=== PATIENT | male | born 1960 | race Caucasian/White ===

== ENCOUNTER 2020-05-18 02:26 | Emergency (ER) | payer BC, OTHER, SELFPAY ==
[2020-05-18 02:43] VITALS: BP 160/101; PULSE 69; RESP 16; TEMP 36.5; O2SAT 96; BMI 26.6
--- NOTE | 2020-05-18 02:44 | ED.BACK ---
HPI - Back Pain/Injury General Chief Complaint: Back Pain/Injury Stated Complaint: LOWER BACK PAIN Time Seen by Provider: 05/18/20 02:44 Source: patient Mode of arrival: ambulatory Limitations: no limitations History of Present Illness MD elicited complaint: back pain Onset (ago): day(s) (yesterday) Timing: constant Severity: moderate Similar Symptoms Previously: No Quality: spasming and throbbing Location: lumbar spine Radiation: none Exacerbating factors: movement Relieving factors: none Associated symptoms: denies other symptoms Treatments prior to arrival: NSAIDS Work related injury: No Related Data Previous Rx's Medication Instructions Recorded diazepam [Valium] 5 mg PO TID PRN #10 tab 05/18/20 ibuprofen 600 mg PO Q6H PRN #30 tab 05/18/20 lidocaine 1 patch TOPICAL DAILY PRN #10 ea 05/18/20 Allergies Allergy/AdvReac Type Severity Reaction Status Date / Time No Known Allergies Allergy Unverified 04/05/20 16:01 [No Known Allergies*] Review of Systems Review of Systems: Constitutional : No Weight loss, No Fever, No Chills, ENT/Mouth : No Hearing loss, No Ear Pain, No Nasal Congestion, No Sinus Pain, No Hoarseness, No sore throat, No Rhinorrhea, No Swallowing Difficulty Cardiovascular : No Chest Pain, No SOB Respiratory : No Cough, No Dyspnea Gastrointestinal : No Nausea, No Vomiting, No Diarrhea, No abdominal Pain, No Hematochezia, No Melena Genitourinary : No Dysuria, No Urinary Frequency, No Hematuria, No Urinary Incontinence, Musculoskeletal : positive back pain Skin : No Skin Lesions, No rash Neuro : No Weakness, No Numbness, No Paresthesias, no loss of bowel or bladder incontinence, no saddle anesthesia [facility] Past Medical History Attestation statement: The following information was validated with the patient. Medical History (Updated 05/18/20 @ 03:11 by Mariluz Weinstein DO) No active medical problems Social History Social History (Updated 05/18/20 @ 03:10 by Mariluz Weinstein DO) Smoking Status: Never smoker Use of substances other than those prescribed or required for medical reasons: No Physical Exam Vital Signs: Vital Signs: Vital Signs Temp Pulse Resp BP Pulse Ox 05/18/20 02:43 97.7 F 69 16 160/101 H 96 Body Mass Index 26.6 Appearance: Alert. Oriented X3. No acute distress. Eyes: Pupils equal, round and reactive to light. ENT: Pharynx normal. Neck: Normal inspection. Neck supple. CVS: Normal heart rate and rhythm. Pulses normal. Respiratory: No respiratory distress. Breath sounds normal. Abdomen: Soft and nontender. Back: ttp bilateral lumbar paraspinals Skin: Skin warm and dry. Normal skin color. Normal skin turgor. Extremities: No lower extremity edema. No calf ttp Neuro: Oriented X 3. No motor deficit. No sensory deficit. SILT inner thigh MDM - Back Pain/Injury MDM Narrative Medical decision making narrative: 60 female with lower back pain in spasm no radicular symptoms, no b/b incontinence, no saddle anesthesia, no IVDA, no AC therapy - likely spasm at this time will need IM Toradol/lidocaine patches. Discharge Plan Discharge Clinical Impression: Strain of lumbar region Patient Disposition: Home, Self-Care Instructions: Acute Low Back Pain (ED) Additional Instructions: return to ED for any worsening symptoms or concerns Prescriptions: New lidocaine 4 % adhesive patch,medicated 1 patch topical DAILY PRN (Reason: pain) Qty: 10 RF: 0 ibuprofen 600 mg tablet 600 mg PO Q6H PRN (Reason: pain) Qty: 30 RF: 0 diazepam [Valium] 5 mg tablet 5 mg PO TID PRN (Reason: muscle spasm) Qty: 10 RF: 0 Referrals: Ijeoma Mckinley, ENTRY LEVEL RECRUITER [Primary Care Provider] - 2 days (if not better) Stand Alone Forms: Work/School Release
[2020-05-18] MEDS: Ketorolac Tromethamine 60 MG/2 ML VIAL IM (03:11)
[2020-05-18] MEDS: Lidocaine 4 % Patch ADH..PATCH 2 PATCH TRANSDERMA (03:12)
--- NOTE | 2020-05-18 03:14 | PC.NURSE ---
PT MEDICATED PER SEP. LIDOCAINE PATCHES APPLIED TO LOWER BACK. AWAITING IMPROVEMENT IN SYMPTOMS AND DC HOME.
== END 2020-05-18 04:03 | disposition home or self-care (01) ==
LOC: HO.ED 03:22
PROVIDERS: Emergency Provider Emergency Medicine; PCP Nurse Practitioner Family
DX: S39.012A Strain of muscle, fascia and tendon of lower back, initial encounter (principal); X58.XXXA Exposure to other specified factors, initial encounter; Y93.9 Activity, unspecified; Y92.9 Unspecified place or not applicable; Y99.9 Unspecified external cause status; Z79.899 Other long term (current) drug therapy
CPT/HCPCS: 96372; 99284; J1885

== ENCOUNTER 2020-05-19 12:40 | Emergency (ER) | payer BC, OTHER, SELFPAY ==
[2020-05-19 12:56] VITALS: BP 139/101; PULSE 73; RESP 16; TEMP 37.2; O2SAT 96; BMI 26.6
[2020-05-19] MEDS: Ketorolac Tromethamine 30 MG/ML VIAL IM (13:46)
--- NOTE | 2020-05-19 14:34 | ED_ITS ---
HPI - Back Pain/Injury General Chief Complaint: Back Pain/Injury Stated Complaint: BACK PAIN Time Seen by Provider: 05/19/20 13:04 History of Present Illness HPI Narrative: Patient complains of back pain for 4 days in the lower back worse with movement, no known injury no weakness no numbness no radiation of pain no changes of bowel or bladder This been going on for 4 days, the pain is moderate, previous treatments were Flexeril and a lidocaine patch which have not helped and he was seen here yesterday and given the prescriptions for the Flexeril and the lidocaine patch but pain persists and is not controlled Related Data Previous Rx's Medication Instructions Recorded diazepam [Valium] 5 mg PO TID PRN #10 tab 05/18/20 ibuprofen 600 mg PO Q6H PRN #30 tab 05/18/20 lidocaine 1 patch TOPICAL DAILY PRN #10 ea 05/18/20 oxycodone-acetaminophen [Percocet] 1 - 2 tab PO Q6H PRN #14 tab 05/19/20 Allergies Allergy/AdvReac Type Severity Reaction Status Date / Time No Known Allergies Allergy Unverified 04/05/20 16:01 [No Known Allergies*] Review of Systems Review of Systems: No fever no chills no numbness no weakness no paresthesias no radiation of pain, no dysuria, no incontinence, no change of bowel or bladder, no chest pain no abdominal pain no nausea no vomiting no leg pain no rash Yes all other systems are reviewed and are negative [facility] Past Medical History Source: nursing notes reviewed Medical History (Updated 05/19/20 @ 13:37 by ORIANA Guzman) No active medical problems Social History Social History (Updated 05/18/20 @ 03:10 by Mariluz Weinstein DO) Alcohol intake: never Smoking Status: Never smoker Advance Directives: No Advance Directives Information Provided: Yes Physical Exam Vital Signs: Vital Signs: Vital Signs Temp Pulse Resp BP Pulse Ox 05/19/20 12:56 99 F 73 16 139/101 H 96 Body Mass Index 26.6 General appearance is no acute distress, A&O x3 Neck is supple and nontender Respiratory no acute respiratory distress Abdomen is soft and nontender Back exam there is lower lumbar paraspinal tenderness, there is no vertebral point tenderness there is no CVA tenderness, pain is easily reproduced with movement, the skin of the back is normal color with no break in the skin no wound no redness no abscess no swelling Extremity exam is full range of motion x4 next the neuro exam is A&O x3, there is no impairment of motor or sensation motor is 5 5 x 4 and sensation is intact and the gait is normal and he is able to come up on toes and heels and flexed knees Course Course Course Narrative: Patient did not have sufficient pain release from medications prescribed yesterday so I added Percocet, he has taken it before and has no issue with narcotic dependence or abuse Discharge Plan Discharge Clinical Impression: Strain of lumbar region Qualifiers: Encounter type: initial encounter Qualified Code(s): S39.012A - Strain of muscle, fascia and tendon of lower back, initial encounter Patient Disposition: Home, Self-Care Additional Instructions: We added narcotic medication, use with caution as it may make you drowsy Follow with primary care doctor as needed for physical therapy or further evaluation Return any time any worse condition or any concerns Prescriptions: New oxycodone-acetaminophen [Percocet] 5-325 mg tablet 1 - 2 tab PO Q6H PRN (Reason: pain) Qty: 14 RF: 0 No Action lidocaine 4 % adhesive patch,medicated 1 patch topical DAILY PRN (Reason: pain) Qty: 10 RF: 0 ibuprofen 600 mg tablet 600 mg PO Q6H PRN (Reason: pain) Qty: 30 RF: 0 diazepam [Valium] 5 mg tablet 5 mg PO TID PRN (Reason: muscle spasm) Qty: 10 RF: 0 Stand Alone Forms: Work/School Release Interventions: ED Discharge Assessment Last Done: 05/19/20 13:48 Discharge Date/Time: 05/19/20 13:51
== END 2020-05-19 13:51 | disposition home or self-care (01) ==
PROVIDERS: Emergency Provider Emergency Medicine; PCP Nurse Practitioner Family
DX: S39.012A Strain of muscle, fascia and tendon of lower back, initial encounter (principal); M54.6 Pain in thoracic spine; X58.XXXA Exposure to other specified factors, initial encounter; Y93.89 Activity, other specified; Y92.9 Unspecified place or not applicable; Y99.9 Unspecified external cause status; Z79.899 Other long term (current) drug therapy
CPT/HCPCS: 96372; 99283; 99284; J1885

== ENCOUNTER 2020-05-21 10:18 | Emergency (ER) | payer BC, OTHER, SELFPAY ==
[2020-05-21 10:44] VITALS: BP 169/109; PULSE 70; RESP 18; TEMP 37.2; O2SAT 97; BMI 26.6
--- NOTE | 2020-05-21 10:54 | CT_ITS ---
EXAMINATION: CT ABDOMEN AND PELVIS WITHOUT CONTRAST CLINICAL INFORMATION: Low back pain. COMPARISON: None TECHNIQUE: Multidetector volumetric imaging was performed from the superior aspect of the liver through the pubic symphysis. Sagittal and coronal reformatted images were obtained on the technologist's workstation. This CT examination was performed using dose optimization techniques as appropriate, variously including the following: *Automated exposure control *Adjustment of mA and/or kV according to patient size (this includes techniques or standardized protocols for targeted exams where dose is matched to indication/reason for exam; i.e. extremities or head) *Use of iterative reconstruction technique DLP: 591 mGy-cm FINDINGS: LUNG BASES: The visualized lung bases are unremarkable. LIVER, GALLBLADDER, AND BILIARY TREE: The liver is normal in size, shape, and attenuation. No focal hepatic lesion or biliary ductal dilatation is present. The gallbladder is unremarkable with no evidence of radiopaque gallstones, gallbladder wall thickening, or obvious pericholecystic inflammatory changes. PANCREAS: Unremarkable. SPLEEN: Unremarkable. ADRENAL GLANDS: Unremarkable. KIDNEYS AND URETERS: The kidneys are normal in size, shape, and attenuation. There is a 2 mm calculi mid pole calyx left kidney without caliectasis. No additional radiopaque calculi seen. There is no hydronephrosis. BLADDER: Unremarkable. GASTROINTESTINAL TRACT: There is scattered colonic diverticula, stool and gas throughout the colon without any significant distention. Small bowel loops are normal caliber. Appendix is normal caliber. No inflammatory process in the right lower quadrant.. ABDOMINAL WALL: No significant hernia is appreciated. LYMPH NODES: Small scattered lymph nodes are seen in the pelvis benefits are significant. VASCULAR: Unremarkable. PELVIC VISCERA: No free air or free fluid seen. The prostate gland is normal size. OSSEOUS STRUCTURES: Unremarkable. CT/CT abdomen pelvis wo con IMPRESSION: New punctate 2 mm calculi pole calyx left kidney. Previously visualized left renal collecting system 1 cm calculi has resolved. There is no hydronephrosis on either side.
--- NOTE | 2020-05-21 11:20 | ED_ITS ---
HPI - Back Pain/Injury General Chief Complaint: Back Pain/Injury <ORIANA Curry Last Filed: 05/21/20 12:10> Stated Complaint: back pain <ORIANA Curry Last Filed: 05/21/20 12:10> Time Seen by Provider: 05/21/20 10:52 <ORIANA Curry Last Filed: 05/21/20 12:10> Source: patient <ORIANA Curry Last Filed: 05/21/20 12:10> Mode of arrival: ambulatory <ORIANA Curry Last Filed: 05/21/20 12:10> Limitations: no limitations <ORIANA Curry Last Filed: 05/21/20 12:10> History of Present Illness HPI Narrative: 60yoM c No Sig PMHx presenting to the ED with complaints of lower back pain Since Thursday worse today. Denies any injuries. Seen here on Thursday and Thursday given muscle relaxants, lidocaine patches, Percocet and other symptomatic treatment and patient reports no symptomatic relief. Reports the pain continues and is getting worse. Denies any other symptoms complaints or concerns. 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 <ORIANA Curry Last Filed: 05/21/20 12:10> Related Data Home Medications: Previous Rx's Medication Instructions Recorded diazepam [Valium] 5 mg PO TID PRN #10 tab 05/18/20 ibuprofen 600 mg PO Q6H PRN #30 tab 05/18/20 lidocaine 1 patch TOPICAL DAILY PRN #10 ea 05/18/20 oxycodone-acetaminophen [Percocet] 1 - 2 tab PO Q6H PRN #14 tab 05/19/20 lidocaine 1 patch TOPICAL DAILY #15 ea NS 05/21/20 naproxen 500 mg PO BID PRN #5 tab NS 05/21/20 oxycodone 5 mg PO Q8H PRN #5 tab NS 05/21/20 prednisone 40 mg PO DAILY 5 Days #10 tab 05/21/20 <ORIANA Curry Last Filed: 05/21/20 12:10> Allergies/Adverse Reactions: Allergies Allergy/AdvReac Type Severity Reaction Status Date / Time No Known Allergies Allergy Verified 05/21/20 10:49 [No Known Allergies*] <ORIANA Curry Last Filed: 05/21/20 12:10> Review of Systems Review of Systems: Constitutional : No trauma, No Weight loss, No Fever, No Chills, ENT/Mouth : No Hearing loss, No Ear Pain, No Nasal Congestion, No Sinus Pain, No Hoarseness, No sore throat, No Rhinorrhea, No Swallowing Difficulty Cardiovascular : No Chest Pain, No SOB Respiratory : No Cough, No Dyspnea Gastrointestinal : No Nausea, No Vomiting, No Diarrhea, No abdominal Pain, No Hematochezia, No Melena Genitourinary : No Dysuria, No Urinary Frequency, No Hematuria, No Urinary or Bowel Incontinence/retention Musculoskeletal : + Back pain, No neck pain, No joint stiffness, No joint swelling Skin : No Skin Lesions, No rash or signs of infection Neuro : No Weakness, No radiation, No Numbness, No Paresthesias, No headache, no loss of bowel or bladder incontinence, no saddle anesthesia Denies history of IV drug usage. <ORIANA Curry - Last Filed: 05/21/20 12:10> Yes all other systems are reviewed and are negative <ORIANA Curry - Last Filed: 05/21/20 12:10> [facility] Past Medical History Attestation statement: The following information was validated with the patient. <ORIANA Curry - Last Filed: 05/21/20 12:10> Medical History: Medical History No active medical problems <ORIANA Curry Last Filed: 05/21/20 12:10> Social History Social History: Social History Alcohol intake: never Smoking Status: Never smoker Advance Directives: No Advance Directives Information Provided: No <ORIANA Curry Last Filed: 05/21/20 12:10> Physical Exam Vital Signs: Vital Signs: Vital Signs Temp Pulse Resp BP Pulse Ox 05/21/20 10:44 99.0 F 70 18 169/109 H 97 Body Mass Index 26.6 vital signs have been reviewed as normal and appeared to be correct. Blood pressure normal. Heart rate normal. Respiration rate normal. Temperature normal. Oxygen saturation normal. <ORIANA Curry - Last Filed: 05/21/20 1 2:10> Vital Signs: Vital Signs Temp Pulse Resp BP Pulse Ox 05/21/20 10:44 99.0 F 70 18 169/109 H 97 Body Mass Index 26.6 <Kaz Valdez MD - Last Filed: 06/01/20 01:23> Appearance: Alert. Oriented X3. No acute distress. Head: Normal external exam. Normocephalic. Atraumatic. No Ramirez signs noted. No raccoon eyes noted Eyes: PERRLA. EOMI. Conjunctiva and sclera normal. Eyelids normal. ENT: EAC normal. TM's Normal. Pharynx normal. Uvula midline. Moist mucous membranes. No trismus noted. No drooling noted. No muffled voice noted. Neck: Normal inspection. Neck supple. FROM. No adenopathy. Thyroid Normal. No meningeal signs. No neck mass noted. CVS: Normal heart rate and rhythm. Heart sound normal. No murmurs noted. Pulses normal throughout. Respiratory: No respiratory distress. Painless inspiration. Breath sounds normal. No wheezes/rales/rhonchi noted. Chest nontender. No accessory muscle usage noted or decreased air movement noted. Abdomen: Soft and nontender. Bowel sounds normal in all 4 quadrants. No distention noted. No organomegaly noted. No visible injury noted. Back: No CVA tenderness. Full range of motion noted. No obvious deformities, or edema. Mild para-spinal muscular tenderness from lumbar region to coccyx. Full ROM in back and lower extremities. 5/5 strength hip extension/flexion, abduction, adduction. Mild Lumbar pain with hip flexion against resistance. Straight leg raise test negative on right; Straight leg raise test negative on left; Reflexes normal ankle and knee bilaterally; EHL motor strength normal bilaterally Skin: Skin warm and dry. Normal skin color. Normal skin turgor. No rashes/lesions/lacerations noted. Extremities: No lower extremity edema. Extremities exhibit normal range of motion. Extremities nontender. Neuro: Oriented X 3. No motor deficit. No sensory deficit. Reflexes normal. <ORIANA Curry - Last Filed: 05/21/20 12:10> Course Course Course Narrative: Pt c likely muscular pain, but could be herniated disc. Neuro exam shows no deficits. Due to patient returning for the 3rd time will obtain a UA and a CT scan of abdomen and pelvis without contrast to evaluate for any acute processes if negative will DC home with symptomatic treatment. Not c/w AAA/epidural abscess/dissection.No high risk Hx (Incont, fever, immunosupp, recent surgery/LP, coag, signif trauma, wt loss, puls mass, hx/o Ca, TB, or IVDU) to warrant MRI today. Not c/w spinal fx. Not cauda equina syndrome. Patient understands agrees the plan. <ORIANA Curry - Last Filed: 05/21/20 12:10> I have reviewed the chart <Kaz Valdez MD - Last Filed: 06/01/20 01:23> MDM - Back Pain/Injury Medical Records Attestation: I reviewed the patient's medical records. <ORIANA Curry - Last Filed: 05/21/20 12:10> Lab Data Attestation: I reviewed the patient's lab results. <ORIANA Curry - Last Filed: 05/21/20 12:10> Labs: Lab Results 05/21/20 Range/Units 11:22 Urine Color YELLOW Urine Appearance CLEAR Urine pH 6.0 (5.0-8.0) Ur Specific Spencer 1.015 (1.005-1.025) Urine Protein NEG (NEG-TRACE) MG/DL Urine Glucose (UA) NEG (NEG) MG/DL Urine Ketones NEG (NEG) MG/DL Urine Blood NEG (NEG) Urine Nitrite NEG (NEG) Ur Leukocyte Esterase NEG (NEG) <ORIANA Curry - Last Filed: 05/21/20 12:10> Lab Results 05/21/20 Range/Units 11:22 Urine Color YELLOW Urine Appearance CLEAR Urine pH 6.0 (5.0-8.0) Ur Specific Spencer 1.015 (1.005-1.025) Urine Protein NEG (NEG-TRACE) MG/DL Urine Glucose (UA) NEG (NEG) MG/DL Urine Ketones NEG (NEG) MG/DL Urine Blood NEG (NEG) Urine Nitrite NEG (NEG) Ur Leukocyte Esterase NEG (NEG) <Kaz Valdez MD - Last Filed: 06/01/20 01:23> Imaging Data CT scan - abdomen: Attestation: I personally reviewed and interpreted this imaging study as follows: <ORIANA Curry Last Filed: 05/21/20 12:10> Radiologist's impression: FINDINGS: LUNG BASES: The visualized lung bases are unremarkable. LIVER, GALLBLADDER, AND BILIARY TREE: The liver is normal in size, shape, and attenuation. No focal hepatic lesion or biliary ductal dilatation is present. The gallbladder is unremarkable with no evidence of radiopaque gallstones, gallbladder wall thickening, or obvious pericholecystic inflammatory changes. PANCREAS: Unremarkable. SPLEEN: Unremarkable. ADRENAL GLANDS: Unremarkable. KIDNEYS AND URETERS: The kidneys are normal in size, shape, and attenuation. There is a 2 mm calculi mid pole calyx left kidney without caliectasis. No additional radiopaque calculi seen. There is no hydronephrosis. BLADDER: Unremarkable. GASTROINTESTINAL TRACT: There is scattered colonic diverticula, stool and gas throughout the colon without any significant distention. Small bowel loops are normal caliber. Appendix is normal caliber. No inflammatory process in the right lower quadrant.. ABDOMINAL WALL: No significant hernia is appreciated. LYMPH NODES: Small scattered lymph nodes are seen in the pelvis benefits are significant. VASCULAR: Unremarkable. PELVIC VISCERA: No free air or free fluid seen. The prostate gland is normal size. OSSEOUS STRUCTURES: Unremarkable. CT/CT abdomen pelvis wo con IMPRESSION: New punctate 2 mm calculi pole calyx left kidney. Previously visualized left renal collecting system 1 cm calculi has resolved. There is no hydronephrosis on either side. <ORIANA Curry - Last Filed: 05/21/20 12:10> Discharge Plan Discharge Clinical Impression: Strain of lumbar paraspinal muscle <ORIANA Curry Last Filed: 05/21/20 12:10> Patient Disposition: Home, Self-Care <ORIANA Curry Last Filed: 05/21/20 12:10> Instructions: Muscle Spasm (ED), Lower Back Exercises (ED) <ORIANA Curry Last Filed: 05/21/20 12:10> Prescriptions: New oxycodone 5 mg tablet 5 mg PO Q8H PRN (Reason: pain) Qty: 5 RF: 0 naproxen 500 mg tablet 500 mg PO BID PRN (Reason: pain ) Qty: 5 RF: 0 prednisone 20 mg tablet 40 mg PO DAILY 5 Days Qty: 10 RF: 0 lidocaine 5 % adhesive patch,medicated 1 patch topical DAILY Qty: 15 RF: 0 No Action lidocaine 4 % adhesive patch,medicated 1 patch topical DAILY PRN (Reason: pain) Qty: 10 RF: 0 ibuprofen 600 mg tablet 600 mg PO Q6H PRN (Reason: pain) Qty: 30 RF: 0 diazepam [Valium] 5 mg tablet 5 mg PO TID PRN (Reason: muscle spasm) Qty: 10 RF: 0 oxycodone-acetaminophen [Percocet] 5-325 mg tablet 1 - 2 tab PO Q6H PRN (Reason: pain) Qty: 14 RF: 0 <ORIANA Curry - Last Filed: 05/21/20 12:10> Referrals: Ijeoma Mckinley, [employer]IC[employer] CH[employer] CLERKS SUPERVISOR [Primary Care Provider] - 2 days ( Please follow-up with your primary care provider regarding your lower back pain this is her 3rd visit to the emergency department we have given you multiple medications you possibly need therapy or further evaluation and treatment. Your CT scan of abdomen and pelvis was within normal limits no acute processes noted. Therefore again follow up with her primary care provider for further evaluation treatment possibly therapy.) <ORIANA Curry - Last Filed: 05/21/20 12:10> Stand Alone Forms: Work/School Release <ORIANA Curry - Last Filed: 05/21/20 12:10> Interventions: ED Discharge Assessment Last Done: 05/21/20 12:12 <ORIANA Curry - Last Filed: 05/21/20 12:10> Discharge Date/Time: 05/21/20 12:14 <ORIANA Curry - Last Filed: 05/21/20 12:10> Print Language: Pashto <ORIANA Curry - Last Filed: 05/21/20 12:10>
[2020-05-21 11:30] LABS: Glucose Urine UA NEG (NEG); Leukocyte Esterase Urine NEG (NEG); Nitrite Urine NEG (NEG); Specific Gravity - Urine 1.015 (1.005-1.025); Urine Blood NEG (NEG); Urine Ketones NEG (NEG); Urine Protein NEG (NEG-TRACE)
[2020-05-21 11:34] LABS: UACC Culture Trigger NO
[2020-05-21 11:35] LABS: Appearance Urine CLEAR; Color Urine YELLOW
== END 2020-05-21 12:14 | disposition home or self-care (01) ==
PROVIDERS: Physician Assistant Medical; Emergency Provider Emergency Medicine; PCP Nurse Practitioner Family
DX: S39.012A Strain of muscle, fascia and tendon of lower back, initial encounter (principal); R10.9 Unspecified abdominal pain; X58.XXXA Exposure to other specified factors, initial encounter; Y93.9 Activity, unspecified; Y92.9 Unspecified place or not applicable; Y99.9 Unspecified external cause status; Z79.899 Other long term (current) drug therapy
CPT/HCPCS: 74176; 81003; 99283; 99284

== ENCOUNTER 2021-04-16 16:11 | Emergency (ER) | payer BC, MEDICAID, SELFPAY ==
[2021-04-16 16:48] VITALS: BP 129/68; PULSE 82; RESP 16; TEMP 37; O2SAT 99; BMI 26.4
[2021-04-16] MEDS: Lidocaine HCl 2 % MPF 5 ML VIAL SUBCUT (17:14)
--- NOTE | 2021-04-16 17:37 | ED_ITS ---
HPI - Extremity Problem General Chief complaint: Extremity Problem Stated complaint: Toe swelling Time Seen by Provider: 04/16/21 17:02 Source: patient Mode of arrival: ambulatory Limitations: no limitations History of Present Illness HPI Narrative: 60-year-old male with a past medical history of recurrent ingrown toenails here with complaints of swelling, pain and ingrown toenail to the low left big toe.. Patient tells me that he was seeing a crane operator unfortunately his crane operator retired and he cannot find 1 that accepts his insurance. No fevers or chills Related Data Previous Rx's Medication Instructions Recorded diazepam 5 mg tablet (Valium) 5 mg PO TID PRN #10 tab 05/18/20 ibuprofen 600 mg tablet 600 mg PO Q6H PRN #30 tab 05/18/20 lidocaine 4 % topical patch 1 patch TOPICAL DAILY PRN #10 ea 05/18/20 oxycodone-acetaminophen 5 mg-325 1 - 2 tab PO Q6H PRN #14 tab 05/19/20 mg tablet (Percocet) lidocaine 5 % topical patch 1 patch TOPICAL DAILY #15 ea NS 05/21/20 naproxen 500 mg tablet 500 mg PO BID PRN #5 tab NS 05/21/20 oxycodone 5 mg tablet 5 mg PO Q8H PRN #5 tab NS 05/21/20 prednisone 20 mg tablet 40 mg PO DAILY 5 Days #10 tab 05/21/20 doxycycline monohydrate 100 mg 100 mg PO BID #20 cap 04/16/21 capsule Allergies Allergy/AdvReac Type Severity Reaction Status Date / Time No Known Allergies Allergy Verified 04/16/21 16:48 [No Known Allergies*] Review of Systems Review of Systems: Yes all other systems are reviewed and are negative Constitutional: Constitutional: Reports no additional constitutional complaints, Denies body ache(s), Denies chills, Denies fever(s), Denies headache(s) and Denies weakness Eyes: Eyes: Reports no additional eye complaints and Denies change in vision ENT: Reports system reviewed and no additional complaints, except as documented, Denies dizziness, Denies headache(s), Denies nasal congestion, Denies nasal discharge and Denies neck pain Cardiovascular: Cardiovascular: Reports no additional cardiovascular complaints, Denies chest pain, Denies leg edema and Denies dyspnea Respiratory: Respiratory: Reports no additional respiratory complaints, Denies cough and Denies dyspnea Gastrointestinal: Gastrointestinal: Reports no additional gastrointestinal complaints, Denies abdominal pain, Denies diarrhea, Denies nausea and Denies vomiting Genitourinary: Genitourinary: Denies urinary incontinence Musculoskeletal: Musculoskeletal: Reports no additional musculoskeletal complaints, Denies back pain, Denies arthralgias, Denies joint swelling, Denies neck pain, Denies numbness and Denies tingling Integumentary/Breasts: Skin/Breast: Reports system reviewed and no additional complaints, except as docu, Reports swelling, Reports erythema and Denies rash Neurologic: Reports system reviewed and no additional complaints, except as documented, Denies Abnormal speech present, Denies dizziness, Denies headache(s), Denies numbness, Denies tingling and Denies weakness PMFSH Past Medical History Attestation statement: The following information was validated with the patient. Source: old records reviewed and nursing notes reviewed Medical History No active medical problems Social History Social History Alcohol intake: never Advance Directives: No Advance Directives Information Provided: No Physical Exam Vital Signs: Vital Signs: Last Vital Signs Temp 98.6 F 04/16/21 16:48 Pulse 82 04/16/21 16:48 Resp 16 04/16/21 16:48 BP 129/68 04/16/21 16:48 Pulse Ox 99 04/16/21 16:48 Body Mass Index 26.4 Const: General: cooperative, healthy appearing, comfortable and no acute distress Orientation/consciousness: patient oriented x3 Limitations: no limitations HENMT: Head: Yes normal to inspection Ears: hearing grossly normal bilaterally General nose exam: Normal external nose present Face and sinus: Yes normal facial exam Mouth: Normal oral and palatal mucosa present Throat: Yes posterior oropharynx normal Eyes: General: appearance normal, both eyes and all related structures Pupils: Equal, round and reactive pupils present Neck: Neck: Yes normal visual inspection Chest: Chest palpation & inspection: normal inspection of the chest Resp: Effort & Inspection: normal respiratory effort Auscultation: clear to auscultation bilaterally Cardio: Rate: regular rate Rhythm: regular rhythm Peripheral pulses: Peripheral pulses 2+ throughout GI: Inspection: Yes normal to inspection Palpation (GI): Soft to palpation and nontender Auscultation: normal bowel sounds Back/Spine/Pelvis: Thoracic/Lumbar Spine: thoracic and lumbar spine normal to inspection Skin: General skin exam: no rashes or lesions noted Neuro: General: patient oriented x3, no focal motor deficits and normal sensation to monofilament Cranial nerves: Yes Equal, round and reactive pupils present Cognition (Neuro): normal cognition Speech: No Abnormal speech present Gait exam (Neuro): Normal gait present Motor exam (neuro): 5/5 motor strength present throughout Extrem: Other: The left great toe there is an ingrown toenail on the medial aspect with some swelling and redness and tenderness General: Yes normal to inspection Course Course Course Narrative: Left ingrown toenail on the great toe. See procedure note. Will start patient on antibiotics and have him follow up with outpatient crane operator. Reviewed worrisome signs and symptoms of when to return to the emergency department. Comfortable discharge home. MDM - Extremity (Nontraumatic) Medical Records Attestation: I reviewed the patient's medical records. Lab Data Attestation: I reviewed the patient's lab results. Procedures Procedure Narrative Procedure Narrative: The medial aspect of the toenail was excised. A SMALL AMOUNT OF THE LATERAL TOENAIL WAS ALSO EXCISED Nerve Block Nerve Block 1: Time out performed: No Local Anesthetic: lidocaine 2% Amount of anesthesia used (mL): 5 Side: left Nerve Blocks: digital Procedure Successful: Yes Patient Tolerated Procedure: well Complications: none Discharge Plan Discharge Clinical Impression: Ingrowing toenail of left foot Patient Disposition: Home, Self-Care Instructions: Ingrown Nail (ED) Additional Instructions: Continue soaks Start antibiotics right away Prescriptions: New doxycycline monohydrate 100 mg capsule 100 mg PO BID Qty: 20 RF: 0 No Action lidocaine 4 % adhesive patch,medicated 1 patch topical DAILY PRN (Reason: pain) Qty: 10 RF: 0 ibuprofen 600 mg tablet 600 mg PO Q6H PRN (Reason: pain) Qty: 30 RF: 0 diazepam [Valium] 5 mg tablet 5 mg PO TID PRN (Reason: muscle spasm) Qty: 10 RF: 0 oxycodone-acetaminophen [Percocet] 5-325 mg tablet 1 - 2 tab PO Q6H PRN (Reason: pain) Qty: 14 RF: 0 oxycodone 5 mg tablet 5 mg PO Q8H PRN (Reason: pain) Qty: 5 RF: 0 naproxen 500 mg tablet 500 mg PO BID PRN (Reason: pain ) Qty: 5 RF: 0 prednisone 20 mg tablet 40 mg PO DAILY 5 Days Qty: 10 RF: 0 lidocaine 5 % adhesive patch,medicated 1 patch topical DAILY Qty: 15 RF: 0 Referrals: Dirk Solano [Physician] - 2 days
== END 2021-04-16 17:45 | disposition home or self-care (01) ==
PROVIDERS: Emergency Provider Emergency Medicine; PCP Nurse Practitioner Family
DX: L60.0 Ingrowing nail (principal); M79.672 Pain in left foot; Z79.899 Other long term (current) drug therapy
CPT/HCPCS: 11765; 99283; 99284

== ENCOUNTER 2023-04-13 14:16 | Emergency (ER) | payer OTHER, SELFPAY ==
--- NOTE | ~2023-04-13 | CT_ITS ---
EXAMINATION: CT ABDOMEN AND PELVIS WITH CONTRAST CLINICAL INFORMATION: Left lower quadrant pain COMPARISON: 05/21/2020 TECHNIQUE: Multidetector volumetric images were obtained from the superior aspect of the liver through the pubic symphysis following administration 85 mL of Omnipaque 350 intravenous contrast. Sagittal and coronal reformatted images were obtained on the technologist's workstation. Oral contrast: No This CT examination was performed using dose optimization techniques as appropriate, variously including the following: *Automated exposure control *Adjustment of mA and/or kV according to patient size (this includes techniques or standardized protocols for targeted exams where dose is matched to indication/reason for exam; i.e. extremities or head) *Use of iterative reconstruction technique DLP: 712 mGy-cm FINDINGS: LUNG BASES: The visualized lung bases are unremarkable. LIVER, GALLBLADDER, AND BILIARY TREE: The liver is normal in size, shape, and attenuation. No focal hepatic lesion or biliary ductal dilatation is present. The gallbladder is unremarkable with no evidence of radiopaque gallstones, gallbladder wall thickening, or obvious pericholecystic inflammatory changes. PANCREAS: Unremarkable. SPLEEN: Unremarkable. ADRENAL GLANDS: Unremarkable. KIDNEYS AND URETERS: The kidneys are normal in size, shape, and attenuation. There is a single punctate nonobstructing left mid renal calculus (4:319). No hydronephrosis, hydroureter, or additional calculi seen. No perinephric stranding. BLADDER: Unremarkable. GASTROINTESTINAL TRACT: The small and large bowel are unremarkable aside from scattered colonic diverticula without diverticulitis. The appendix is unremarkable. ABDOMINAL WALL: There is a tiny umbilical hernia seen containing only fat. There is mild diastases of the rectus muscles. Tiny inguinal hernias are seen containing only fat. LYMPH NODES: No retroperitoneal lymphadenopathy. VASCULAR: Calcific plaque present in the distal aorta. No aneurysm. PELVIC VISCERA: Unremarkable. OSSEOUS STRUCTURES: Unremarkable. CT/CT abdomen pelvis w IV con IMPRESSION: 1. A cause for the patient's left lower quadrant pain has not been found. 2. There is a single punctate nonobstructing left renal calculus. 3. Colonic diverticulosis without diverticulitis. Fleischner guidelines were followed.
[2023-04-13 15:21] VITALS: BP 174/106; PULSE 70; RESP 14; TEMP 36.3; O2SAT 96; BMI 31.8
--- NOTE | 2023-04-13 15:21 | ED.GENADULT ---
HPI - General Adult General Chief complaint: Abdominal Pain Stated complaint: lower l side abd pain Time Seen by Provider: 04/13/23 21:11 Source: patient Mode of arrival: ambulatory Limitations: no limitations History of Present Illness HPI narrative: 62 yo male remote hx of kidney stones requiring lithotripsy in the past but no other PMH or surgeries here with c/o stabbing painful LLQ but denies other associated or GI complaints and no n/v or fevers. He states he has never had diverticulitis in the past. He denies hematuria MD complaint: LLQ pain Onset (ago): hour(s) (several ) Location: abdomen Radiation: non-radiation Severity: mild Quality: stabbing and aching Pain Consistency: intermittent Relieving factors: none Exacerbating factors: movement Associated symptoms: denies other symptoms Treatments prior to arrival: none Related Data Previous Rx's Medication Instructions Recorded diazepam 5 mg tablet (Valium) 5 mg PO TID PRN muscle spasm #10 05/18/20 tabs ibuprofen 600 mg tablet 600 mg PO Q6H PRN pain #30 tabs 05/18/20 lidocaine 4 % topical patch 1 patch topical DAILY PRN pain #10 05/18/20 ea oxycodone-acetaminophen 5 mg-325 1 - 2 tab PO Q6H PRN pain #14 tabs 20 mg tablet (Percocet) lidocaine 5 % topical patch 1 patch topical DAILY #15 ea 05/21/20 naproxen 500 mg tablet 500 mg PO BID PRN pain #5 tabs 05/21/20 oxycodone 5 mg tablet 5 mg PO Q8H PRN pain #5 tabs 05/21/20 prednisone 20 mg tablet 40 mg (2 x 20 mg) PO DAILY 05/21/20 inflammation 5 days #10 tabs doxycycline monohydrate 100 mg 100 mg PO BID #20 caps 04/16/21 capsule Allergies Allergy/AdvReac Type Severity Reaction Status Date / Time No Known Allergies Allergy Verified 04/16/21 16:48 [No Known Allergies*] Review of Systems Review of Systems: Constitutional : No Weight loss, No Fever, No Chills ENT/Mouth : No sore throat, No Rhinorrhea Eyes: No Swelling, No Redness Cardiovascular : No Chest Pain, No SOB, NoEdema Respiratory : No Cough, No Sputum, No Wheezing Gastrointestinal : no Nausea, no Vomiting, no Diarrhea, positive abdominal Pain, No Hematochezia, No Melena Genitourinary : No Dysuria, No Urinary Frequency, No Hematuria, No Urgency Musculoskeletal : No joint pain, No Myalgias, No Joint Swelling Skin : No Skin Lesions, No rash Neuro : No Weakness, No Numbness, No Dizziness, No Headache Psych : No Anxiety/Panic, No Depression Heme/Lymph: No Bruising, No Lymphadenopathy Endocrine : No Polyuria, No Polydipsia All other systems reviewed and are negative. [facility] Past Medical History Attestation statement: The following information was validated with the patient. Medical History No active medical problems Social History Social History (Updated 04/13/23 @ 21:36 by Cristal Weinstein DO) Alcohol intake: never Patient Tobacco Use Status: Tobacco use Unknown Smoked in Last 30 Days: No Use of substances other than those prescribed or required for medical reasons: No Advance Directives: No Advance Directives Information Provided: No Physical Exam ED Vital Signs: Vital Signs - 24 hr 04/13/23 15:21 04/13/23 21:45 04/13/23 23:42 Temperature 97.3 F 97.9 F 97.8 F Pulse Rate 70 79 57 Respiratory Rate 14 18 Blood Pressure 174/106 H 144/103 H 144/84 H Pulse Oximetry 96 95 98 Oxygen Delivery Method Room Air Room Air Room Air BMI result Body Mass Index 31.8 Appearance: Alert. Oriented X3. No acute distress. Eyes: Pupils equal, round and reactive to light. ENT: Pharynx normal. Neck: Normal inspection. Neck supple. CVS: Normal heart rate and rhythm. Pulses normal. Respiratory: No respiratory distress. Breath sounds normal. Abdomen: Soft and moderate ttp in LLQ no rebound Skin: Skin warm and dry. Normal skin color. Normal skin turgor. Extremities: No lower extremity edema. No calf ttp Neuro: Oriented X 3. No motor deficit. No sensory deficit. Course Course Course Narrative: RME performed by Chantal Hickey PA-C. Patient is a 62 year old assigned male at presenting to the emergency department with abdominal pain. Labs ordered. Patient placed back in the waiting room pending room availability and results. Reevaluation(s) Reevaluation #1: has normal labs and normal CT scan clinically I would have suspected diverticulitis but given lack of fevers and WBC count will start on NSAIDs and DC home. Medications Administered Discontinued Medications Generic Name Dose Route Start Last Admin Trade Name [place] PRN Reason Stop Dose Admin Sodium Chloride 1,000 mls @ 999 mls/hr 04/13/23 21:30 04/13/23 21:43 Ns IV 04/13/23 22:30 999 mls/hr .Q1H1M AUREA Administration Iohexol 85 ml 04/13/23 23:21 04/13/23 23:21 Iohexol 350 Mg/Ml 100 Ml Infus..Btl IV 04/13/23 23:22 85 ml ONCE ONE Administration Ketorolac Tromethamine 15 mg 04/13/23 21:23 04/13/23 21:52 Ketorolac Tromethamine 15 Mg/Ml Vial IVPUSH 04/13/23 21:24 15 mg ONCE ONE Administration Medical Decision Making Medical Decision Making [facility] Narrative: 62 yo male PMH of renal colic remotely here with c/o LLQ pain but no other GI or symptoms at this time will need basic labs, UA, CT scan and IVF and IV toradol. No rebound or acute abdomen. Suspect renal colic vs diverticulitis. Differential Diagnosis Differential Diagnoses: The differential diagnosis associated with the presentation includes renal colic, diverticulitis Admission/Observation Consideration of admission/observation: Escalation of care including admission/observation considered no acute findings stable for outaptient management Lab Data [facility] Lab Attestation statement: I reviewed the patient's lab results. 04/13/23 16:00 04/13/23 16:00 Labs: Lab Results 04/13/23 Range/Units 16:00 WBC 6.4 (4.8-10.8) X10*3/uL RBC 5.34 (4.60-5.80) X10*6/uL Hgb 17.4 (14.0-18.0) g/dl Hct 48.2 (42.0-52.0) % MCV 90.3 (80.0-98.0) fL MCH 32.6 (27.0-33.0) pg MCHC 36.1 H (31.0-36.0) g/dl RDW 12.5 (11.0-16.0) % Plt Count 204 (160-400) X10*3/uL MPV 9.2 L (9.4-12.4) fL Immature Gran % (Auto) 0.2 (0.0-0.4) % Neut % (Auto) 51.4 (45-73) % Lymph % (Auto) 38.4 (20-40) % Stokes % (Auto) 7.4 (2-11) % Eos % (Auto) 2.0 (0-4) % Baso % (Auto) 0.6 (0-2) % Lymph # (Auto) 2.5 (1.2-4.9) X10*3/uL Stokes # (Auto) 0.5 (0.1-1.2) X10*3/uL Eos # (Auto) 0.1 (0.0-0.4) X10*3/uL Baso # (Auto) 0.0 (0.0-0.2) X10*3/uL Abs Immat Gran (auto) 0.01 (0.00-0.03) X10*3/uL Absolute Neuts (auto) 3.3 (2.0-8.3) x10*3/uL Absolute Nucleated RBC 0.000 (0.0-0.012) X10*3/uL Nucleated RBC % (auto) 0.0 (0.0-0.2) /100WBC Sodium 136 (135-145) mmol/L Potassium 3.9 (3.3-5.1) mmol/L Chloride 108 (96-108) mmol/L Carbon Dioxide 20 L (22-29) mmol/L Anion Gap 12 (12-20) BUN 19 H (9-16) mg/dL Creatinine 0.99 (0.5-1.4) mg/dL Estim Creat Clear Calc 77.5 Estimated GFR > 60 Random Glucose 102 (60-115) mg/dL Calcium 9.8 (8.4-10.2) mg/dL Magnesium 2.0 (1.6-2.6) mg/dL Total Bilirubin 0.5 (0.0-1.0) mg/dL AST 27 (5-37) U/L ALT 34 (0-40) U/L Alkaline Phosphatase 72 (39-117) U/L Total Protein 7.1 (6.5-8.0) g/dL Albumin 4.2 (3.5-5.0) g/dL Urine Color Yellow Urine Appearance Clear Urine pH 5.5 (5.0-9.0) Ur Specific [place] 1.020 (1.005-1.025) Urine Protein Negative (Neg-Trace) mg/dL Urine Glucose (UA) Negative (Negative) mg/dL Urine Ketones Negative (Negative) mg/dL Urine Blood Negative (Negative) Urine Nitrite Negative (Negative) Ur Leukocyte Esterase Negative (Negative) Independent Interpretation I performed an independent interpretation of an: CT Scan (normal ) Radiology Impression Discussion of test interpretation with radiology: I have reviewed the radiologist's reading. External Record Review External record reviewed: Inpatient record Prescription Management I considered prescription management with: Pain Medication Discharge Plan Discharge Clinical Impression: Abdominal pain Qualifiers: Abdominal location: left lower quadrant Qualified Code(s): R10.32 - Left lower quadrant pain Patient Disposition: Home, Self-Care Instructions: Abdominal Pain (ED) Additional Instructions: labs normal, urine negative, CT scan normal no acute stone causing symptoms and no active diverticulitis. small bilateral fat containing hernias none of these are causing symptoms. at this time no findings for source of pain will start on tylenol and motrin for pain. you do have diverticulosis but no signs of infection. return for fevers, vomiting, black or bloody stools, inability to urinate or any other concerns. Prescriptions: No Action lidocaine 4 % adhesive patch,medicated 1 patch topical DAILY PRN (Reason: pain) Qty: 10 0RF Rx Instructions: may leave on for up to 12 hrs ibuprofen 600 mg tablet 600 mg PO Q6H PRN (Reason: pain) Qty: 30 0RF diazepam [Valium] 5 mg tablet 5 mg PO TID PRN (Reason: muscle spasm) Qty: 10 0RF oxycodone-acetaminophen [Percocet] 5-325 mg tablet 1 - 2 tab PO Q6H PRN (Reason: pain) Qty: 14 0RF oxycodone 5 mg tablet 5 mg PO Q8H PRN (Reason: pain) Qty: 5 0RF naproxen 500 mg tablet 500 mg PO BID PRN (Reason: pain ) Qty: 5 0RF prednisone 20 mg tablet 40 mg PO DAILY 5 Days Qty: 10 0RF lidocaine 5 % adhesive patch,medicated 1 patch topical DAILY Qty: 15 0RF Rx Instructions: leave on most painful area for up to 12 hrs doxycycline monohydrate 100 mg capsule 100 mg PO BID Qty: 20 0RF Stand Alone Forms: Work/School Release
[2023-04-13 16:05] LABS: MANUAL DIFF FLAG NO
[2023-04-13 16:07] LABS: Basophils Percent Auto 0.6 % (0-2); Eosinophils Absolute Auto 0.1 X10*3/uL (0.0-0.4); Hematocrit 48.2 % (42.0-52.0); Hemoglobin 17.4 g/dl (14.0-18.0); Imm Gran Abs Auto 0.01 X10*3/uL (0.00-0.03); Imm Gran Pct Auto 0.2 % (0.0-0.4); Lymphocytes Absolute Auto 2.5 X10*3/uL (1.2-4.9); Lymphocytes Percent Auto 38.4 % (20-40); Mean Corpuscular HGB Conc 36.1 g/dl (31.0-36.0); Mean Corpuscular Hemoglobin 32.6 pg (27.0-33.0); Mean Corpuscular Volume 90.3 fL (80.0-98.0); Mean Platelet Volume 9.2 fL (9.4-12.4); Monocytes Absolute Auto 0.5 X10*3/uL (0.1-1.2); Monocytes Percent Auto 7.4 % (2-11); Neutrophils Absolute Auto 3.3 x10*3/uL (2.0-8.3); Neutrophils Percent Auto 51.4 % (45-73); Platelet Count 204 X10*3/uL (160-400); Red Blood Count 5.34 X10*6/uL (4.60-5.80); Red Cell Distribution Width 12.5 % (11.0-16.0); White Blood Count 6.4 X10*3/uL (4.8-10.8)
[2023-04-13 16:08] LABS: Appearance Urine Clear; Color Urine Yellow; Glucose Urine UA Negative (Negative); Leukocyte Esterase Urine Negative (Negative); Nitrite Urine Negative (Negative); PH 5.5 (5.0-9.0); Urine Blood Negative (Negative); Urine Ketones Negative (Negative); Urine Protein Negative (Neg-Trace)
[2023-04-13 16:21] LABS: Alanine Aminotransferase 34 U/L (0-40); Albumin Level 4.2 g/dL (3.5-5.0); Alkaline Phosphatase 72 U/L (39-117); Anion Gap 12 (12-20); Aspartate Amino Transferase 27 U/L (5-37); Bilirubin Total 0.5 mg/dL (0.0-1.0); Blood Urea Nitrogen 19 mg/dL (9-16); Calcium 9.8 mg/dL (8.4-10.2); Carbon Dioxide 20 mmol/L (22-29); Chloride 108 mmol/L (96-108); Creatinine Clr Calc Pharmacy 77.5; Estimated Glomerular Filt Rate > 60; Glucose Random 102 mg/dL (60-115); Potassium 3.9 mmol/L (3.3-5.1); Sodium 136 mmol/L (135-145); Total Protein 7.1 g/dL (6.5-8.0)
[2023-04-13] MEDS: 0.9 % Sodium Chloride 1,000 ML 999 ML IV (21:43)
[2023-04-13 21:45] VITALS: BP 144/103; PULSE 79; RESP 18; TEMP 36.6; O2SAT 95
[2023-04-13] MEDS: Ketorolac Tromethamine 15 MG/ML VIAL IVPUSH (21:52)
[2023-04-13] MEDS: iohexoL 350 MG/ML 100 ML INFUS..BTL 85 ML IV (23:21)
[2023-04-13 23:42] VITALS: BP 144/84; PULSE 57; TEMP 36.6; O2SAT 98
== END 2023-04-14 00:38 | disposition home or self-care (01) ==
PROVIDERS: Physician Assistant Medical; Emergency Provider Emergency Medicine
DX: R10.32 Left lower quadrant pain (principal)
CPT/HCPCS: 36415; 74177; 80053; 81003; 83735; 85025; 96361; 96374; 99284; J1885; Q9967

== ENCOUNTER 2023-12-14 18:08 | Emergency (ER) | payer OTHER, SELFPAY ==
[2023-12-14 18:27] VITALS: BP 185/94; PULSE 62; RESP 20; TEMP 37; O2SAT 95; BMI 31.6
--- NOTE | 2023-12-14 18:27 | ED_ITS ---
HPI - General Adult General Chief complaint: Dental/Oral Stated complaint: jaw pain Time Seen by Provider: 12/14/23 20:55 History of Present Illness HPI narrative: The patient is a 63-year-old male who is on no medications. He denies any particular medical problems although he does not have any teeth. He says he is unable to wear dentures because he has a severe gag reflex. The patient says that early this morning at around 01:00 he noticed that he had pain on the right side of his face. He indicates his right cheek area. Pain has been persistent all day long. It is persistent and constant. He used ibuprofen. He has had no associated fever, sweats, chills. He has no associated chest pain or shortness of breath. No associated nausea or vomiting. No diaphoresis. He came to the emergency room because the pain was going on for so long for unclear reasons. He does not think that he grinds his jaw. Related Data Previous Rx's ?Medication ?Instructions ?Recorded diazepam 5 mg tablet (Valium) 5 mg PO TID PRN muscle spasm #10 05/18/20 tabs ibuprofen 600 mg tablet 600 mg PO Q6H PRN pain #30 tabs 05/18/20 lidocaine 4 % topical patch 1 patch topical DAILY PRN pain #10 05/18/20 ea oxycodone-acetaminophen 5 mg-325 1 - 2 tab PO Q6H PRN pain #14 tabs 05/19/20 mg tablet (Percocet) lidocaine 5 % topical patch 1 patch topical DAILY #15 ea 05/21/20 naproxen 500 mg tablet 500 mg PO BID PRN pain #5 tabs 05/21/20 oxycodone 5 mg tablet 5 mg PO Q8H PRN pain #5 tabs 05/21/20 prednisone 20 mg tablet 40 mg (2 x 20 mg) PO DAILY 05/21/20 inflammation 5 days #10 tabs doxycycline monohydrate 100 mg 100 mg PO BID #20 caps 04/16/21 capsule cyclobenzaprine 10 mg tablet 10 mg PO BEDTIME PRN muscle spasm 12/14/23 #10 tabs ibuprofen 600 mg tablet 600 mg PO Q6H PRN pain #14 tabs 12/14/23 Allergies Allergy/AdvReac Type Severity Reaction Status Date / Time No Known Allergies Allergy Verified 05/27/24 18:29 [No Known Allergies*] Review of Systems 2 Review of Systems: Yes all other systems are reviewed and are negative [facility], [facility] Past Medical History Medical History No active medical problems Social History Social History (Updated 04/13/23 @ 21:36 by Cristal Weinstein DO) Alcohol intake: never Patient Tobacco Use Status: Tobacco use Unknown Advance Directives: No Advance Directives Information Provided: Yes Do you have a plan to hurt others: No Plan Physical Exam ED Vital Signs: Vital Signs - 24 hr 12/14/23 18:27 12/14/23 20:19 Temperature 98.6 F 97.8 F Pulse Rate 62 60 Respiratory Rate 20 20 Blood Pressure 185/94 H 143/93 H Pulse Oximetry 95 97 Oxygen Delivery Method Room Air Room Air BMI result Body Mass Index 31.6 Const Other: The patient is awake, alert, pleasant, cooperative in no apparent distress. HENMT Other: Tympanic membranes are normal. The face is normal to inspection. Intraoral exam is unremarkable. The patient is edentulous. No unusual findings in the mouth. Airway is clear. The posterior pharynx is normal. There is no trismus. With palpation of the right TMJ however the patient has distinct tenderness when he closes his mouth. Eyes Other: Pupils are round equal, conjunctivae are clear, extraocular movements intact Neck Other: No cervical adenopathy Resp Effort & Inspection: normal respiratory effort Auscultation: clear to auscultation bilaterally Cardio Rate: regular rate Rhythm: regular rhythm Heart sounds: S1 normal heart sound present and S2 normal heart sound present Skin Other: Skin is dry and unremarkable Neuro Other: The patient is awake, alert, pleasant, cooperative, speech is clear, face is symmetrical, he moves normally, he seems grossly neurologically intact. Extrem Other: No peripheral edema Course Course Course Narrative: This is a rapid medical exam performed by Latonia Mckeon NP: Additional HPI, ROS, PE not included below will be deferred to primary provider. Patient is a 63-year-old edentulous male presenting to the ED with complaint of right sided jaw pain since 1 or 2 am today, woke from sleep due to pain. Also does not wear dentures. Took ibuprofen without relief. Denies any other pmhx. Denies fevers or drainage. Denies chest pain, palpitations, dyspnea. Plan: EKG, labs Medical Decision Making Medical Decision Making [facility] Narrative: The patient is a very pleasant 63-year-old male who was on no medications and denies any significant past medical history. He is edentulous. He presents with spontaneous right-sided facial pain that is not associated with any other significant symptoms. The patient does not appear clinically ill in any way. EKG is nonischemic. Troponin is negative after over 12 hours of pain. This does not seem to be an atypical presentation of an acute coronary syndrome. On exam he seems to have right TMJ pain. 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 He will be prescribed ibuprofen and cyclobenzaprine. He should follow up with his PCP. Lab Data 12/14/23 18:44 12/14/23 18:44 Labs: Lab Results 12/14/23 Range/Units 18:44 WBC 5.5 (4.8-10.8) X10*3/uL RBC 4.90 (4.60-5.80) X10*6/uL Hgb 16.1 (14.0-18.0) g/dl Hct 43.9 (42.0-52.0) % MCV 89.6 (80.0-98.0) fL MCH 32.9 (27.0-33.0) pg MCHC 36.7 H (31.0-36.0) g/dl RDW 12.2 (11.0-16.0) % Plt Count 163 (160-400) X10*3/uL MPV 8.7 L (9.4-12.4) fL Immature Gran % (Auto) 0.4 (0.0-0.4) % Neut % (Auto) 52.5 (45-73) % Lymph % (Auto) 36.9 (20-40) % Gall[place] % (Auto) 6.4 (2-11) % Eos % (Auto) 2.9 (0-4) % Baso % (Auto) 0.9 (0-2) % Lymph # (Auto) 2.0 (1.2-4.9) X10*3/uL [place] # (Auto) 0.4 (0.1-1.2) X10*3/uL Eos # (Auto) 0.2 (0.0-0.4) X10*3/uL Baso # (Auto) 0.1 (0.0-0.2) X10*3/uL Abs Immat Gran (auto) 0.02 (0.00-0.03) X10*3/uL Absolute Neuts (auto) 2.9 (2.0-8.3) x10*3/uL Absolute Nucleated RBC 0.000 (0.0-0.012) X10*3/uL Nucleated RBC % (auto) 0.0 (0.0-0.2) /100WBC Sodium 136 (135-145) mmol/L Potassium 4.1 (3.3-5.1) mmol/L Chloride 108 (96-108) mmol/L Carbon Dioxide 21 L (22-29) mmol/L Anion Gap 11 L (12-20) BUN 13 (9-16) mg/dL Creatinine 1.00 (0.5-1.4) mg/dL Estim Creat Clear Calc 75.6 Estimated GFR > 60 Random Glucose 130 H (60-115) mg/dL Calcium 9.0 D (8.4-10.2) mg/dL Total Bilirubin 0.4 (0.0-1.0) mg/dL AST 34 (5-37) U/L ALT 52 H (0-40) U/L Alkaline Phosphatase 68 (39-117) U/L Troponin I High Sens 3.6 (<3.5-35.0) ng/L Total Protein 6.1 L (6.5-8.0) g/dL Albumin 3.6 (3.5-5.0) g/dL Independent Interpretation I performed an independent interpretation of an: EKG Interpretation: EKG at 18:33 shows normal sinus rhythm at 61 beats per minute. There is a left anterior fascicular block. There is no old EKG for comparison. There are no definite acute ischemic changes. Discharge Plan Discharge Clinical Impression: Temporomandibular joint (TMJ) pain Patient Disposition: Home, Self-Care Instructions: Temporomandibular Disorder (ED) Additional Instructions: I believe your pain is coming from the joint on the right side of your jaw. This is called the temporomandibular joint. This joint can become irritated sometimes for unclear reasons. You may use acetaminophen (Tylenol) as needed for pain. I have also sent a prescription for ibuprofen that you may use. In addition I have sent a muscle relaxant prescription, cyclobenzaprine, the you may use at bedtime. Please plan on making a follow up appointment with your regular doctor's office to discuss this problem further. Return to the emergency room if you feel significantly worse. Prescriptions: New ibuprofen 600 mg tablet 600 mg PO Q6H PRN (Reason: pain) Qty: 14 0RF cyclobenzaprine 10 mg tablet 10 mg PO BEDTIME PRN (Reason: muscle spasm) Qty: 10 0RF No Action lidocaine 4 % adhesive patch,medicated 1 patch topical DAILY PRN (Reason: pain) Qty: 10 0RF Rx Instructions: may leave on for up to 12 hrs ibuprofen 600 mg tablet 600 mg PO Q6H PRN (Reason: pain) Qty: 30 0RF diazepam [Valium] 5 mg tablet 5 mg PO TID PRN (Reason: muscle spasm) Qty: 10 0RF oxycodone-acetaminophen [Percocet] 5-325 mg tablet 1 - 2 tab PO Q6H PRN (Reason: pain) Qty: 14 0RF oxycodone 5 mg tablet 5 mg PO Q8H PRN (Reason: pain) Qty: 5 0RF naproxen 500 mg tablet 500 mg PO BID PRN (Reason: pain ) Qty: 5 0RF prednisone 20 mg tablet 40 mg PO DAILY 5 Days Qty: 10 0RF lidocaine 5 % adhesive patch,medicated 1 patch topical DAILY Qty: 15 0RF Rx Instructions: leave on most painful area for up to 12 hrs doxycycline monohydrate 100 mg capsule 100 mg PO BID Qty: 20 0RF Referrals: [facility] Lucina Sauceda [Provider Group] (TMJ syndrome) Print Language: Guatemalan
--- NOTE | 2023-12-14 18:29 | ECG_ITS ---
Test Reason : JAW PAIN Blood Pressure : / mmHG Vent. Rate : 061 BPM Atrial Rate : 061 BPM P-R Int : 186 ms QRS Dur : 118 ms QT Int : 442 ms P-R-T Axes : 016 -50 002 degrees QTc Int : 444 ms Normal sinus rhythm Left anterior fascicular block Left ventricular hypertrophy with QRS widening ( R in aVL , Claude product ) Abnormal ECG No previous ECGs available Referred By: Tiffanie cMkeon Electronically Signed By:ELEAZAR COLON
[2023-12-14 18:48] LABS: MANUAL DIFF FLAG NO
[2023-12-14 18:55] LABS: Basophils Absolute Auto 0.1 X10*3/uL (0.0-0.2); Basophils Percent Auto 0.9 % (0-2); Eosinophils Absolute Auto 0.2 X10*3/uL (0.0-0.4); Eosinophils Percent Auto 2.9 % (0-4); Hematocrit 43.9 % (42.0-52.0); Hemoglobin 16.1 g/dl (14.0-18.0); Imm Gran Abs Auto 0.02 X10*3/uL (0.00-0.03); Imm Gran Pct Auto 0.4 % (0.0-0.4); Lymphocytes Percent Auto 36.9 % (20-40); Mean Corpuscular HGB Conc 36.7 g/dl (31.0-36.0); Mean Corpuscular Hemoglobin 32.9 pg (27.0-33.0); Mean Corpuscular Volume 89.6 fL (80.0-98.0); Mean Platelet Volume 8.7 fL (9.4-12.4); Monocytes Absolute Auto 0.4 X10*3/uL (0.1-1.2); Monocytes Percent Auto 6.4 % (2-11); Neutrophils Absolute Auto 2.9 x10*3/uL (2.0-8.3); Neutrophils Percent Auto 52.5 % (45-73); Platelet Count 163 X10*3/uL (160-400); Red Cell Distribution Width 12.2 % (11.0-16.0); White Blood Count 5.5 X10*3/uL (4.8-10.8)
[2023-12-14 19:13] LABS: Alanine Aminotransferase 52 U/L (0-40); Albumin Level 3.6 g/dL (3.5-5.0); Alkaline Phosphatase 68 U/L (39-117); Anion Gap 11 (12-20); Aspartate Amino Transferase 34 U/L (5-37); Bilirubin Total 0.4 mg/dL (0.0-1.0); Blood Urea Nitrogen 13 mg/dL (9-16); Carbon Dioxide 21 mmol/L (22-29); Chloride 108 mmol/L (96-108); Creatinine Clr Calc Pharmacy 75.6; Estimated Glomerular Filt Rate > 60; Glucose Random 130 mg/dL (60-115); Potassium 4.1 mmol/L (3.3-5.1); Sodium 136 mmol/L (135-145); Total Protein 6.1 g/dL (6.5-8.0)
[2023-12-14 19:20] LABS: Troponin-I High Sensitivity 3.6 ng/L (<3.5-35.0)
[2023-12-14 20:19] VITALS: BP 143/93; PULSE 60; RESP 20; TEMP 36.6; O2SAT 97
[2023-12-14 21:23] VITALS: BP 131/94; PULSE 59; RESP 18; TEMP 36.6; O2SAT 97
[2023-12-14 21:41] VITALS: BP 131/94; PULSE 59; RESP 18; TEMP 36.6; O2SAT 97
== END 2023-12-14 21:27 | disposition home or self-care (01) ==
PROVIDERS: Registered Nurse Emergency; Emergency Provider Emergency Medicine
DX: M26.621 Arthralgia of right temporomandibular joint (principal)
CPT/HCPCS: 36415; 80053; 84484; 85025; 93005; 99283; 99284

== ENCOUNTER → 2023-12-14 18:29 | Outpatient (BNV) | payer OTHER, SELFPAY | PROVIDERS: Emergency Provider Emergency Medicine; Visit Provider Internal Medicine | DX: R94.31 Abnormal electrocardiogram [ECG] [EKG] (principal) | CPT/HCPCS: 93010 ==